=== PATIENT | male | born 1995 | race Hispanic/Latino ===

== ENCOUNTER 2018-04-30 18:25 | Emergency (ER) | payer BC ==
[~2018-04-30] VITALS: Ht 182.9 cm; Wt 115.7 kg
[2018-04-30] MEDS ORDERED: IBUPROFEN 600 MG TAB PO ONE (19:00)
--- NOTE | 2018-04-30 19:24 | Diagnostic Imaging Report ---
Frontal and lateral views of the chest. HISTORY: Chest pain, right chest wall pain COMPARISON: None available. DISCUSSION: Lungs: The lungs are well inflated. No evidence of a consolidative pneumonia or pulmonary alveolar edema. Pleura: No pleural effusion or pneumothorax. Heart and mediastinum: The cardiomediastinal silhouette appears unremarkable. Bones and soft tissues: Mild multilevel degenerative disc changes. IMPRESSION: No acute radiographic abnormality. Signed by: Dr. Josiah Garcia D.O., M.M.M. on 04/30/2018 7:21 PM
[2018-04-30 20:55] VITALS: BP 119/76
== END 2018-04-30 22:02 | disposition home or self-care (01) ==
LOC: ER 18:25
DX: R07.89 Other chest pain (principal); F17.210 Nicotine dependence, cigarettes, uncomplicated
CPT/HCPCS: 71046; 93005; 99283